=== PATIENT | female | born 1990 | race Caucasian/White ===

== ENCOUNTER 2016-03-24 08:53 | Outpatient (CLI) | payer OTHER | END 2016-03-24 08:54 | disposition home or self-care (01) | DX: R05 Cough (principal) ==

== ENCOUNTER 2018-02-28 08:36 | Emergency (ER) | payer BC, OTHER ==
[2018-02-28] MEDS ORDERED: SODIUM CHLORIDE 0.9% 2,000 ML IV ONE (09:42)
[2018-02-28 09:56] LABS: BASOPHILS % (AUTO) 0.4 %; EOSINOPHILS # (AUTO) 0.1 10^3/uL (0.0-0.7); EOSINOPHILS % (AUTO) 1.7 %; HGB - HEMOGLOBIN 14.7 g/dL (12.0-16.0); MEAN CORPUSCULAR HEMOGLOBIN 31.6 pg (27.0-31.0); MEAN CORPUSCULAR HGB CONC 34.4 g/dL (32.0-36.0); MEAN PLATELET VOLUME 8.4 fL (7.9-10.8); MONOCYTES # (AUTO) 0.4 10^3/uL (0.0-1.0); MONOCYTES % (AUTO) 6.9 %; NEUTROPHILS # (AUTO) 4.9 10^3/uL (1.5-6.6); PLT - PLATELET COUNT 270 10^3/uL (130-450); RED BLOOD COUNT 4.63 10^6/uL (4.20-5.40); WHITE BLOOD COUNT 6.4 x10^3/uL (4.8-10.8)
[2018-02-28 09:58] LABS: BILIRUBIN,URINE NEGATIVE (NEGATIVE); GLUCOSE, URINE (UA) NEGATIVE (NEGATIVE); KETONES,URINE (UA) NEGATIVE (NEGATIVE); LEUKOCYTE ESTERASE, URINE NEGATIVE (NEGATIVE); NITRITE,URINE NEGATIVE (NEGATIVE); OCCULT BLOOD,URINE NEGATIVE (NEGATIVE); PROTEIN,URINE NEGATIVE (NEGATIVE); UROBILINOGEN,URINE 0.2 (NORMAL) E.U./dL (NORMAL)
[2018-02-28 10:07] LABS: ALBUMIN 3.8 g/dL (3.2-5.5); BILIRUBIN,TOTAL 0.8 mg/dL (0.2-1.0); CALCIUM 8.9 mg/dL (8.5-10.3); CREATININE 0.8 mg/dL (0.4-1.0); TOTAL PROTEIN 7.5 g/dL (6.7-8.2)
[2018-02-28 10:08] LABS: CLARITY,URINE CLEAR (CLEAR)
[2018-02-28 10:09] LABS: HCG UR QUAL NEGATIVE
[2018-02-28 10:18] LABS: HCG,QUALITATIVE BLOOD NEGATIVE
[2018-02-28] MEDS ORDERED: KETOROLAC 60 MG/2 ML VIAL IVP STA (10:23)
[2018-02-28] MEDS ORDERED: ONDANSETRON 4 MG/2 ML VIAL IVP STA (10:23)
--- NOTE | 2018-02-28 10:27 | ED Physician Documentation ---
History of Present Illness - Stated complaint Stated Complaint: L UPPER ABD PX - Chief complaint Chief Complaint: Abd Pain - Additonal information Additional information: hx from pt 27 y/o female LMP 6 days late took plan B 2 weeks ago last night jah flank pain today flank and LLQ pain no fever + nausea no vomit or diarrhea no dysuria or hematuria Review of Systems Constitutional: denies: Fever, Chills Cardiac: denies: Chest pain / pressure Respiratory: denies: Dyspnea GI: reports: Abdominal Pain, Nausea. denies: Vomiting, Diarrhea : reports: LMP (6 days late). denies: Dysuria, Hematuria, Now EGA (HCG neg) Musculoskeletal: reports: Back pain (L flank) Endocrine: denies: Easy bruising / bleeding Immunocompromised: denies: Immunocompromised PD PAST MEDICAL HISTORY - Past Medical History Cardiovascular: None Respiratory: Asthma Neuro: None Endocrine/Autoimmune: None GI: None ZIPPER JOINER: None : None HEENT: None Psych: None Musculoskeletal: None Derm: None - Past Surgical History Past Surgical History: No - Present Medications Home Medications: Ambulatory Orders Medication Instructions Recorded Confirmed FLUoxetine [PROzac] 1 tab PO DAILY 02/28/18 02/28/18 Ibuprofen [Motrin] 400 mg PO Q6H PRN #20 tablet 02/28/18 Levonorgestrel-Ethin Estradiol 1 tab PO DAILY 02/28/18 02/28/18 [Aviane-28 Tablet] Ondansetron Odt [Zofran] 4 mg TL Q6H PRN #10 tablet 02/28/18 Tamsulosin HCl [Flomax] 0.4 mg PO DAILY #7 cap 02/28/18 - Allergies Allergies/Adverse Reactions: Allergies Allergy/AdvReac Type Severity Reaction Status Date / Time benzalkonium chloride Allergy Edema Verified 02/28/18 08:55 [From Daniel-All] - Social History Does the pt smoke?: No Smoking Status: Never smoker Does the pt drink ETOH?: Yes Substance Use and Type: Marijuana - Immunizations Immunizations are current?: Yes - POLST Patient has POLST: No PD ED PE NORMAL - Vitals Vital signs reviewed: Yes - Neck Neck: Supple, no meningeal sign - Cardiac Cardiac: RRR - Respiratory Respiratory: No respiratory distress, Clear bilaterally - Abdomen Abdomen: Soft, Other (TTP LLQ > RLQ > LUQ and no TTP RUQ, no guarding or rebound) - Female Female : Deferred (pt denies vag bleed or dc, no private rooms available, nl pelvic sono, added on GC and chlamydia to urine) - Back Back: No CVA TTP - Derm Derm: Normal color - Extremities Extremities: No deformity - Neuro Neuro: Alert and oriented X 3 Results - Vitals Vitals: Vital Signs - 24 hr 02/28/18 02/28/18 02/28/18 08:50 09:45 12:43 Temperature 36.9 C Heart Rate 82 72 63 Respiratory 20 18 16 Rate Blood Pressure 124/86 H 120/81 H 100/58 L O2 Saturation 97 98 97 02/28/18 14:06 Temperature Heart Rate 83 Respiratory 16 Rate Blood Pressure 109/86 H O2 Saturation 97 Oxygen O2 Source Room air - Labs Labs: Laboratory Tests 02/28/18 02/28/18 02/28/18 09:30 09:30 09:30 WBC 6.4 RBC 4.63 Hgb 14.7 Hct 42.6 MCV 92.0 MCH 31.6 H MCHC 34.4 RDW 13.0 Plt Count 270 MPV 8.4 Neut # (Auto) 4.9 Lymph # (Auto) 1.0 L [place] # (Auto) 0.4 Eos # (Auto) 0.1 Baso # (Auto) 0.0 Absolute Nucleated RBC 0.00 Nucleated RBC % 0.0 Sodium 136 Potassium 3.7 Chloride 107 Carbon Dioxide 23 Anion Gap 6.0 BUN 10 Creatinine 0.8 Estimated GFR (MDRD) 87 L Glucose 103 H Calcium 8.9 Total Bilirubin 0.8 AST 18 ALT 14 Alkaline Phosphatase 64 Total Protein 7.5 Albumin 3.8 Globulin 3.7 Albumin/Globulin Ratio 1.0 Lipase 31 Serum HCG, Qual NEGATIVE Urine Color Urine Clarity Urine pH Ur Specific Sikes Urine Protein Urine Glucose (UA) Urine Ketones Urine Occult Blood Urine Nitrite Urine Bilirubin Urine Urobilinogen Ur Leukocyte Esterase Ur Microscopic Review Urine Culture Comments Urine HCG, Qual 02/28/18 02/28/18 09:30 09:30 WBC RBC Hgb Hct MCV MCH MCHC RDW Plt Count MPV Neut # (Auto) Lymph # (Auto) [place] # (Auto) Eos # (Auto) Baso # (Auto) Absolute Nucleated RBC Nucleated RBC % Sodium Potassium Chloride Carbon Dioxide Anion Gap BUN Creatinine Estimated GFR (MDRD) Glucose Calcium Total Bilirubin AST ALT Alkaline Phosphatase Total Protein Albumin Globulin Albumin/Globulin Ratio Lipase Serum HCG, Qual Urine Color YELLOW Urine Clarity CLEAR Urine pH 6.0 Ur Specific [place] >=1.030 H >=1.030 H Urine Protein NEGATIVE Urine Glucose (UA) NEGATIVE Urine Ketones NEGATIVE Urine Occult Blood NEGATIVE Urine Nitrite NEGATIVE Urine Bilirubin NEGATIVE Urine Urobilinogen 0.2 (NORMAL) Ur Leukocyte Esterase NEGATIVE Ur Microscopic Review NOT INDICATED Urine Culture Comments NOT INDICATED Urine HCG, Qual NEGATIVE - Rads (name of study) pelvic sono Radiology: See rad report (normal) abd sono Radiology: See rad report (mild left hydro) Departure - Departure Disposition: Home, Self Care Clinical Impression: Flank pain, Renal colic Condition: Good Instructions: ED Flank Pain Uncertain Cause, ED Stone Renal W Colic Follow-Up: Ariana Moon PA-C [Primary Care Provider] - Prescriptions: Ibuprofen [Motrin] 400 mg PO Q6H PRN #20 tablet PRN Reason: Pain Ondansetron Odt [Zofran] 4 mg TL Q6H PRN #10 tablet PRN Reason: Nausea / Vomiting Tamsulosin HCl [Flomax] 0.4 mg PO DAILY #7 cap Comments: Both the urine and the blood tests were negative There was no infection in the urine The blood work looked fine The ultrasound of your ovaries and uterus was fine The ovary of your left kidney showed some backed up urine called hydronephrosis. The most common cause of this is a kidney stone. No blood was seen in the urine so I cannot be 100% certain of this diagnosis. But I don't think that the radiation of a CT scan is a good idea at this time. I recommend we let you go home for now with anti-inflammatory pain medications, nausea medication and medication to relax the ureter. Follow up with your PMD for a recheck before the weekend. Return to the ER if worse in any way Forms: Activity restrictions Discharge Date/Time: 02/28/18 14:27
--- NOTE | 2018-02-28 12:57 | Ultrasound Report ---
Reason: L flank pain eval L kidney Procedure Date: 02/28/2018 Accession Number: [id number] / [id number] Procedure: US - Abdomen Limited CPT Code: FULL RESULT: EXAM: ABDOMEN ULTRASOUND LIMITED EXAM DATE: 02/28/2018 11:05 AM. CLINICAL HISTORY: L flank pain eval L kidney. COMPARISON: None. TECHNIQUE: Real-time scanning was performed with static images obtained. FINDINGS: Left kidney: Normal in size at 11.1 cm in length. No contour deforming mass or sonographically apparent calculi. Normal echogenicity. Mild hydronephrosis. Spleen: 10 cm. Normal. IMPRESSION: Mild left hydronephrosis. RADIA
--- NOTE | 2018-02-28 13:01 | Ultrasound Report ---
Reason: LLQ pain Procedure Date: 02/28/2018 Accession Number: [id number] / [id number] Procedure: US - Pelvic w/Transvag+Doppler Comp CPT Code: FULL RESULT: EXAM: PELVIC ULTRASOUND EXAM DATE: 02/28/2018 11:32 AM. CLINICAL HISTORY: LLQ pain. COMPARISON: ABDOMEN LIMITED 02/28/2018 11:04 AM. TECHNIQUE: Realtime transabdominal pelvic scan performed to identify the uterus and adnexa and as an overview of other pelvic structures, followed by transvaginal scan to provide greater detail of the uterus and adnexa, with static image documentation. FINDINGS: Uterus: 7.8 x 3.0 x 4.6 cm, volume 56 cc. Anteverted position. Normal overall size and echotexture. Masses: None. Endometrium: 4 mm. Normal. Cervix: Unremarkable. Right Ovary: 3.8 x 1.4 x 1.7 cm, volume 4.7 cc. Normal echotexture and blood flow. Left Ovary: 3.6 x 1.5 x 2.4 cm, volume 6.7 cc. Normal echotexture and blood flow. Free Fluid: None. Other: None. IMPRESSION: Normal pelvic ultrasound. RADIA
[2018-02-28 14:06] VITALS: BP 109/86
== END 2018-02-28 14:27 | disposition home or self-care (01) ==
LOC: ED 08:36
DX: N23 Unspecified renal colic (principal); N13.30 Unspecified hydronephrosis; Z32.02 Encounter for pregnancy test, result negative
CPT/HCPCS: 36415; 76705; 76830; 76856; 80053; 81001; 81003; 81025; 83690; 84703; 85025; 87086; 87491; 87591; 93975; 96361; 96374; 99283

== ENCOUNTER 2018-04-20 15:05 | Outpatient (CLI) | payer BC ==
--- NOTE | 2018-04-20 23:44 | Ultrasound Report ---
Reason: HYDRONEPHROSIS, LEFT Procedure Date: 04/20/2018 Accession Number: [id number] / [id number] Procedure: US - Retroperitoneal CPT Code: FULL RESULT: EXAM: RENAL ULTRASOUND. EXAM DATE: 04/20/2018 04:16 PM. CLINICAL HISTORY: History of left hydronephrosis. COMPARISON: Left renal ultrasound 02/28/2018. TECHNIQUE: Real-time scanning was performed with static images obtained. FINDINGS: Right Kidney: 9.6 x 4.2 x 5.3 cm. No hydronephrosis or shadowing stones. Grossly unremarkable parenchymal echogenicity and cortical thickness. No focal lesion identified. No perinephric fluid. Left Kidney: 10.5 x 5.1 x 3.8 cm. No hydronephrosis or shadowing stones. Variant prominent column of [place]. Grossly unremarkable parenchymal echogenicity and cortical thickness. No focal lesion or perinephric fluid. Bladder: Smooth contour. Bilateral jets seen. The prevoid bladder volume was 170 cc. The postvoid bladder volume was 16 cc. IMPRESSION: 1. Unremarkable renal sonogram with presence of bilateral ureteral jets. No hydronephrosis, shadowing stones, or focal renal lesion identified. 2. No focal bladder abnormality identified. Negligible postvoid residual. RADIA
== END 2018-04-20 15:06 | disposition home or self-care (01) ==
LOC: DI 15:05
PROVIDERS: ATTEND Physician Assistant Medical
DX: N13.30 Unspecified hydronephrosis (principal)
CPT/HCPCS: 76770